=== PATIENT | female | born 1960 | race Caucasian/White ===

== ENCOUNTER 2016-06-02 07:50 | Outpatient (CLI) | payer BC, OTHER ==
[2016-06-02 08:58] LABS: BASOPHILS # (AUTO) 0.1 /CMM (0.0-0.2); BASOPHILS % (AUTO) 0.8 % (0.0-2.0); DIFF TOTAL % 100 %; EOSINOPHILS # (AUTO) 0.3 /CMM (0.0-0.7); EOSINOPHILS % (AUTO) 4.9 % (0.0-6.0); HEMATOCRIT 41 % (33-45); HEMOGLOBIN 14.1 g/dL (11.5-14.8); LYMPHOCYTES # (AUTO) 1.9 /CMM (0.8-4.8); LYMPHOCYTES % (AUTO) 28.6 % (20.0-44.0); MEAN CORPUSCULAR HEMOGLOBIN 30 PG (26.0-33.0); MEAN CORPUSCULAR HGB CONC 34 g/dl (31.0-36.0); MEAN CORPUSCULAR VOLUME 88 fL (82-100); MONOCYTES # (AUTO) 0.5 /CMM (0.1-1.30); MONOCYTES % (AUTO) 7.8 % (2.0-12.0); NEUTROPHILS # (AUTO) 3.9 /CMM (1.8-8.9); NEUTROPHILS % (AUTO) 57.9 % (43.0-81.0); PLATELET COUNT (AUTO) 126 /CMM (150-450); RED BLOOD CELL COUNT(AUTO) 4.72 MIL/uL (4.0-5.2); WHITE BLOOD COUNT (AUTO) 6.7 K/uL (4.3-11.0)
[2016-06-02 09:25] LABS: ALBUMIN 3.5 g/dL (3.4-5.0); BILIRUBIN,TOTAL 0.6 mg/dL (0.2-1.0); CREATININE 0.8 mg/dL (0.6-1.3); POTASSIUM 3.8 mmol/L (3.5-5.1); TOTAL PROTEIN, SERUM 7.1 g/dL (6.4-8.2)
[2016-06-02 09:49] LABS: ERYTHROCYTE SEDIMENTATION RATE 14 MM/HR (0-30)
== END 2016-06-02 23:59 | disposition home or self-care (01) ==
LOC: LAB 07:50
DX: K63.89 Other specified diseases of intestine (principal)
CPT/HCPCS: 36415; 80053-TC; 82306; 82728-TC; 83540-TC; 85025-TC; 85652-TC; 86140-TC

== ENCOUNTER 2016-10-18 07:58 | Outpatient (CLI) | payer BC, OTHER ==
[2016-10-18 08:27] LABS: BASOPHILS % (AUTO) 0.6 % (0.0-2.0); EOSINOPHILS # (AUTO) 0.3 /CMM (0.0-0.7); EOSINOPHILS % (AUTO) 5.4 % (0.0-6.0); HEMATOCRIT 39 % (33-45); HEMOGLOBIN 13.5 g/dL (11.5-14.8); LYMPHOCYTES # (AUTO) 2.1 /CMM (0.8-4.8); LYMPHOCYTES % (AUTO) 35.9 % (20.0-44.0); MEAN CORPUSCULAR HEMOGLOBIN 29 PG (26.0-33.0); MEAN CORPUSCULAR HGB CONC 34 g/dl (31.0-36.0); MEAN CORPUSCULAR VOLUME 85 fL (82-100); MONOCYTES # (AUTO) 0.5 /CMM (0.1-1.30); MONOCYTES % (AUTO) 7.8 % (2.0-12.0); NEUTROPHILS % (AUTO) 50.3 % (43.0-81.0); PLATELET COUNT (AUTO) 162 /CMM (150-450); RDW COEFFICIENT OF VARIATION 13.1 (11.5-15.0); WHITE BLOOD COUNT (AUTO) 5.9 K/uL (4.3-11.0)
[2016-10-18 08:43] LABS: ALBUMIN 3.2 g/dL (3.4-5.0); BILIRUBIN,TOTAL 0.6 mg/dL (0.2-1.0); CALCIUM, SERUM 8.2 mg/dL (8.5-10.1); CREATININE 0.8 mg/dL (0.6-1.3); POTASSIUM 4.2 mmol/L (3.5-5.1); TOTAL PROTEIN, SERUM 6.9 g/dL (6.4-8.2)
== END 2016-10-18 23:59 | disposition home or self-care (01) ==
LOC: LAB 07:58
DX: Z01.818 Encounter for other preprocedural examination (principal)
CPT/HCPCS: 36415; 80053-TC; 85025-TC

== ENCOUNTER 2016-12-21 13:52 | Outpatient (CLI) | payer BC, OTHER ==
[2016-12-21 14:40] LABS: ALBUMIN 3.6 g/dL (3.4-5.0); BILIRUBIN,TOTAL 0.5 mg/dL (0.2-1.0); CALCIUM, SERUM 8.2 mg/dL (8.5-10.1); CREATININE 0.8 mg/dL (0.6-1.3); POTASSIUM 3.7 mmol/L (3.5-5.1); TOTAL PROTEIN, SERUM 7.4 g/dL (6.4-8.2)
== END 2016-12-21 23:59 | disposition home or self-care (01) ==
LOC: LAB 13:52
DX: K52.9 Noninfective gastroenteritis and colitis, unspecified (principal)
CPT/HCPCS: 36415; 80053-TC

== ENCOUNTER 2017-04-27 13:05 | Emergency (ER) | payer BC, OTHER ==
[~2017-04-27] VITALS: Ht 162.6 cm; Wt 70.8 kg
--- NOTE | 2017-04-27 13:10 | NUR ---
PATIENT TO ED DT SUDDEN L HIP PAIN THIS MORNING,/, NON RADITING. NO TRAUMA. PATIENT IS AMBULATORY. VSS
[2017-04-27] MEDS ORDERED: MORPHINE SULFATE INJ 2 MG/ML DISP.SYRIN IM ONE (14:30)
[2017-04-27] MEDS ORDERED: ONDANSETRON 4 MG TAB.RAPDIS SL ONE (14:30)
--- NOTE | 2017-04-27 14:45 | NUR ---
Patient discharged to home in stable condition. Written and verbal after care instructions given. Patient verbalizes understanding of instruction.
[2017-04-27 15:19] VITALS: BP 115/74
== END 2017-04-27 15:19 | disposition home or self-care (01) ==
LOC: ER 13:06
DX: M25.552 Pain in left hip (principal)
CPT/HCPCS: 99281; A4606; Z7610; Z7502

== ENCOUNTER 2020-06-20 14:07 | Outpatient (CLI) | payer BC, OTHER ==
[2020-06-20 15:32] LABS: BASOPHILS # (AUTO) 0.1 /CMM (0.0-0.2); HEMATOCRIT 43 % (33-45); HEMOGLOBIN 14.5 g/dL (11.5-14.8); LYMPHOCYTES # (AUTO) 2.5 /CMM (0.8-4.8); LYMPHOCYTES % (AUTO) 35.7 % (20.0-44.0); MEAN CORPUSCULAR HGB CONC 34 g/dl (31.0-36.0); MEAN CORPUSCULAR VOLUME 88 fL (82-100); MONOCYTES # (AUTO) 0.4 /CMM (0.1-1.30); MONOCYTES % (AUTO) 6.4 % (2.0-12.0); NEUTROPHILS # (AUTO) 3.7 /CMM (1.8-8.9); NEUTROPHILS % (AUTO) 52.9 % (43.0-81.0); PLATELET COUNT (AUTO) 187 /CMM (150-450); RED BLOOD CELL COUNT(AUTO) 4.86 MIL/uL (4.0-5.2); WHITE BLOOD COUNT (AUTO) 6.9 K/uL (4.3-11.0)
[2020-06-20 16:01] LABS: ALBUMIN 4.2 g/dL (3.4-5.0); BILIRUBIN,TOTAL 0.8 mg/dL (0.2-1.0); CALCIUM, SERUM 9.4 mg/dL (8.5-10.1); CREATININE 0.7 mg/dL (0.6-1.3); POTASSIUM 3.7 mmol/L (3.5-5.1); TOTAL PROTEIN, SERUM 7.8 g/dL (6.4-8.2)
[2020-06-21 08:06] LABS: AFP, TUMOR MARKER 2.2 ng/mL (0.0-8.3)
== END 2020-06-20 23:59 | disposition home or self-care (01) ==
LOC: LAB 14:07
DX: K51.90 Ulcerative colitis, unspecified, without complications (principal); K76.0 Fatty (change of) liver, not elsewhere classified; R97.8 Other abnormal tumor markers; R79.1 Abnormal coagulation profile
CPT/HCPCS: 36415; 80053-TC; 82105; 82150-TC; 83516; 83690-TC; 85025-TC; 85610-TC; 85730-TC; 86706; 86707; 86803; 87340; 87350; 87522; 87806

== ENCOUNTER 2020-07-10 09:00 | Outpatient (CLI) | payer BC, OTHER ==
[2020-07-10 10:28] LABS: BILIRUBIN,URINE NEGATIVE (NEGATIVE); LEUKOCYTE ESTERASE ,URINE TRACE (NEGATIVE); NITRITE, URINE NEGATIVE (NEGATIVE); PH,URINE 5.5 (5.0-8.0); PROTEIN,URINE NEGATIVE (NEGATIVE); UGLUCOSE NEGATIVE (NEGATIVE); UROBILINOGEN,URINE 0.2 EU/dL (0.2)
[2020-07-10 10:29] LABS: COLOR,URINE STRAW (YELLOW)
[2020-07-10 10:43] LABS: C-REACTIVE PROTEIN 0.4 mg/dL (0.0-0.9); THYROID STIMULATING HORMONE 1.179 uIU/mL (0.358-3.74)
[2020-07-10 12:32] LABS: BACTERIA,URINE Few /HPF (None Seen); RBC,URINE 0-2 /HPF (0-2); SQUAMOUS EPITHELIAL CELL,UR Moderate /HPF (None Seen); WBC,URINE 0-3 /HPF (0-3)
[2020-07-11 08:06] LABS: THYROID PEROXIDASE (TPO) AB 13 IU/mL (0-34)
== END 2020-07-10 23:59 | disposition home or self-care (01) ==
LOC: CT 09:00
PROVIDERS: ATTEND Legal Medicine
DX: E03.9 Hypothyroidism, unspecified (principal); D64.9 Anemia, unspecified; E55.9 Vitamin D deficiency, unspecified; R10.9 Unspecified abdominal pain; I67.82 Cerebral ischemia; Z00.00 Encounter for general adult medical examination without abnormal findings
CPT/HCPCS: 36415; 70450-TC; 80061-TC; 81001; 82306; 82607-TC; 84439-TC; 84443-TC; 85652-TC; 86140-TC; 86376; 86800

== ENCOUNTER 2020-08-05 08:23 | Outpatient (CLI) | payer BC, OTHER ==
[2020-08-05 09:18] LABS: BASOPHILS # (AUTO) 0.1 /CMM (0.0-0.2); BASOPHILS % (AUTO) 0.9 % (0.0-2.0); EOSINOPHILS % (AUTO) 2.3 % (0.0-6.0); HEMATOCRIT 42 % (33-45); HEMOGLOBIN 13.9 g/dL (11.5-14.8); LYMPHOCYTES % (AUTO) 31.7 % (20.0-44.0); MEAN CORPUSCULAR HGB CONC 34 g/dl (31.0-36.0); MEAN CORPUSCULAR VOLUME 89 fL (82-100); MONOCYTES # (AUTO) 0.4 /CMM (0.1-1.30); MONOCYTES % (AUTO) 6.2 % (2.0-12.0); NEUTROPHILS # (AUTO) 3.7 /CMM (1.8-8.9); NEUTROPHILS % (AUTO) 58.9 % (43.0-81.0); PLATELET COUNT (AUTO) 180 /CMM (150-450); RED BLOOD CELL COUNT(AUTO) 4.69 MIL/uL (4.0-5.2); WHITE BLOOD COUNT (AUTO) 6.2 K/uL (4.3-11.0)
[2020-08-05 09:46] LABS: ALBUMIN 3.7 g/dL (3.4-5.0); BILIRUBIN,TOTAL 0.6 mg/dL (0.2-1.0); CALCIUM, SERUM 8.7 mg/dL (8.5-10.1); CREATININE 0.7 mg/dL (0.6-1.3); POTASSIUM 3.9 mmol/L (3.5-5.1); TOTAL PROTEIN, SERUM 7.2 g/dL (6.4-8.2)
[2020-08-06 08:06] LABS: AFP, TUMOR MARKER 1.8 ng/mL (0.0-8.3)
[2020-08-07 10:07] LABS: HEPATITIS Be AB Negative (Negative)
== END 2020-08-05 23:59 | disposition home or self-care (01) ==
LOC: LAB 08:23
DX: K51.90 Ulcerative colitis, unspecified, without complications (principal); R79.1 Abnormal coagulation profile; K76.0 Fatty (change of) liver, not elsewhere classified; R97.8 Other abnormal tumor markers
CPT/HCPCS: 36415; 80053-TC; 82105; 82150-TC; 83690-TC; 85025-TC; 85730-TC; 86706; 86707; 86803; 87340; 87350; 87522

== ENCOUNTER 2020-12-11 10:27 | Outpatient (CLI) | payer BC, OTHER | END 2020-12-11 23:59 | disposition home or self-care (01) | LOC: US 10:27 | PROVIDERS: ATTEND Legal Medicine | DX: R10.2 Pelvic and perineal pain (principal) | CPT/HCPCS: 76856-TC ==

== ENCOUNTER 2020-12-22 06:24 | Emergency (ER) | payer BC, OTHER ==
[~2020-12-22] VITALS: Ht 162.6 cm; Wt 62.6 kg
[2020-12-22 06:24] VITALS: BP 98/69
== END 2020-12-22 07:20 | disposition home or self-care (01) ==
LOC: ER 06:24
DX: U07.1 COVID-19 (principal); Z87.19 Personal history of other diseases of the digestive system
CPT/HCPCS: 87426; 99283; C9803; U0003

== ENCOUNTER 2021-04-13 09:55 | Outpatient (CLI) | payer BC, OTHER ==
[2021-04-13 11:09] LABS: BASOPHILS % (AUTO) 0.7 % (0.0-2.0); EOSINOPHILS % (AUTO) 2.7 % (0.0-6.0); HEMATOCRIT 43 % (33-45); HEMOGLOBIN 14.2 g/dL (11.5-14.8); LYMPHOCYTES # (AUTO) 2.4 K/uL (0.8-4.8); LYMPHOCYTES % (AUTO) 39.7 % (20.0-44.0); MEAN CORPUSCULAR HGB CONC 33 g/dl (31.0-36.0); MEAN CORPUSCULAR VOLUME 91 fL (82-100); MONOCYTES # (AUTO) 0.4 K/uL (0.1-1.30); MONOCYTES % (AUTO) 7.2 % (2.0-12.0); NEUTROPHILS % (AUTO) 49.7 % (43.0-81.0); PLATELET COUNT (AUTO) 173 K/uL (150-450); RED BLOOD CELL COUNT(AUTO) 4.68 MIL/uL (4.0-5.2); WHITE BLOOD COUNT (AUTO) 6.1 K/uL (4.3-11.0)
[2021-04-13 11:17] LABS: ALBUMIN 3.8 g/dL (3.4-5.0); BILIRUBIN,TOTAL 0.9 mg/dL (0.2-1.0); CALCIUM, SERUM 8.9 mg/dL (8.5-10.1); CREATININE 0.8 mg/dL (0.6-1.3); POTASSIUM 4.1 mmol/L (3.5-5.1); TOTAL PROTEIN, SERUM 7.2 g/dL (6.4-8.2)
[2021-04-13 11:26] LABS: THYROID STIMULATING HORMONE 1.522 uIU/mL (0.358-3.74); URIC ACID 5.1 mg/dL (2.6-7.2)
[2021-04-13 12:59] LABS: BILIRUBIN,URINE NEGATIVE (NEGATIVE); COLOR,URINE YELLOW (YELLOW); LEUKOCYTE ESTERASE ,URINE LARGE (NEGATIVE); NITRITE, URINE NEGATIVE (NEGATIVE); PH,URINE 6.5 (5.0-8.0); PROTEIN,URINE NEGATIVE (NEGATIVE); UGLUCOSE NEGATIVE (NEGATIVE); UROBILINOGEN,URINE 0.2 EU/dL (0.2)
[2021-04-13 17:23] LABS: C-REACTIVE PROTEIN 0.5 mg/dL (0.0-0.9)
== END 2021-04-13 23:59 | disposition home or self-care (01) ==
LOC: LAB 09:55
PROVIDERS: ATTEND Legal Medicine
DX: E11.9 Type 2 diabetes mellitus without complications (principal); E55.9 Vitamin D deficiency, unspecified; E78.00 Pure hypercholesterolemia, unspecified; E03.9 Hypothyroidism, unspecified; D64.9 Anemia, unspecified; R53.1 Weakness; Z00.00 Encounter for general adult medical examination without abnormal findings
CPT/HCPCS: 36415; 80053-TC; 80061-TC; 81001; 82306; 82607-TC; 82728-TC; 83540-TC; 84439-TC; 84443-TC; 84550-TC; 85025-TC; 85652-TC; 86140-TC; 87086-TC

== ENCOUNTER 2021-04-24 07:20 | Outpatient (CLI) | payer BC, OTHER | END 2021-04-24 23:59 | disposition home or self-care (01) | LOC: CARD 07:20 | PROVIDERS: ATTEND Legal Medicine | DX: M79.669 Pain in unspecified lower leg (principal) | CPT/HCPCS: 93970-TC ==

== ENCOUNTER 2021-07-27 09:00 | Outpatient (CLI) | payer BC, OTHER ==
[2021-07-27 09:47] LABS: BASOPHILS % (AUTO) 0.5 % (0.0-2.0); EOSINOPHILS % (AUTO) 3.9 % (0.0-6.0); HEMATOCRIT 40 % (33-45); HEMOGLOBIN 13.4 g/dL (11.5-14.8); LYMPHOCYTES # (AUTO) 2.3 K/uL (0.8-4.8); LYMPHOCYTES % (AUTO) 37.9 % (20.0-44.0); MEAN CORPUSCULAR HGB CONC 34 g/dl (31.0-36.0); MEAN CORPUSCULAR VOLUME 90 fL (82-100); MONOCYTES # (AUTO) 0.4 K/uL (0.1-1.30); MONOCYTES % (AUTO) 6.9 % (2.0-12.0); NEUTROPHILS % (AUTO) 50.8 % (43.0-81.0); PLATELET COUNT (AUTO) 163 K/uL (150-450); RED BLOOD CELL COUNT(AUTO) 4.44 MIL/uL (4.0-5.2)
[2021-07-27 10:03] LABS: BILIRUBIN,URINE NEGATIVE (NEGATIVE); COLOR,URINE YELLOW (YELLOW); LEUKOCYTE ESTERASE ,URINE MODERATE (NEGATIVE); NITRITE, URINE NEGATIVE (NEGATIVE); PH,URINE 5.5 (5.0-8.0); PROTEIN,URINE NEGATIVE (NEGATIVE); UGLUCOSE NEGATIVE (NEGATIVE); UROBILINOGEN,URINE 0.2 EU/dL (0.2)
[2021-07-27 10:17] LABS: BACTERIA,URINE Moderate /HPF (None Seen); RBC,URINE 0-2 /HPF (0-2); SQUAMOUS EPITHELIAL CELL,UR Moderate /HPF (None Seen)
[2021-07-27 10:27] LABS: C-REACTIVE PROTEIN 0.2 mg/dL (0.0-0.9); FREE T4 (FREE THYROXINE) 1.09 ng/dL (0.76-1.46); THYROID STIMULATING HORMONE 1.089 uIU/mL (0.358-3.74); URIC ACID 4.3 mg/dL (2.6-7.2)
[2021-07-27 10:50] LABS: ALBUMIN 3.9 g/dL (3.4-5.0); BILIRUBIN,TOTAL 0.8 mg/dL (0.2-1.0); CALCIUM, SERUM 8.6 mg/dL (8.5-10.1); CREATININE 0.7 mg/dL (0.6-1.3); POTASSIUM 3.6 mmol/L (3.5-5.1); TOTAL PROTEIN, SERUM 7.2 g/dL (6.4-8.2)
== END 2021-07-27 23:59 | disposition home or self-care (01) ==
LOC: LAB 09:00
PROVIDERS: ATTEND Legal Medicine
DX: E11.9 Type 2 diabetes mellitus without complications (principal); E55.9 Vitamin D deficiency, unspecified; E78.5 Hyperlipidemia, unspecified; E03.9 Hypothyroidism, unspecified; D64.9 Anemia, unspecified; Z00.00 Encounter for general adult medical examination without abnormal findings
CPT/HCPCS: 36415; 80053-TC; 80061-TC; 81001; 82306; 82607-TC; 82728-TC; 83540-TC; 84439-TC; 84443-TC; 84550-TC; 85025-TC; 85652-TC; 86140-TC; 87086-TC

== ENCOUNTER 2021-12-21 08:00 | Outpatient (CLI) | payer BC, OTHER | END 2021-12-21 23:59 | disposition home or self-care (01) | LOC: LAB 08:00 | PROVIDERS: ATTEND Internal Medicine Gastroenterology | DX: Z01.812 Encounter for preprocedural laboratory examination (principal); Z20.822 Contact with and (suspected) exposure to COVID-19 | CPT/HCPCS: U0003; C9803 ==

== ENCOUNTER 2021-12-28 07:50 | Day surgery (SDC) | payer BC, OTHER ==
--- NOTE | 2021-12-28 08:50 | NUR ---
MS/DS RN NOTES PT ARRIVED TO UNIT AT 0800 AMBULATORY ACCOMPANIED BY ADMITTING STAFF FOR COLONOSCOPY BY DR COWAN. PT IS A/O X4. ABLE TO VERBALIZED NEEDS. ORIENTED TO ROOM AND STAFF. ON ROOM AIR, TOLERATING WELL, BREATHING EVEN AND UNLABORED. PT SIGNED ALL CONSENTS FOR SURGERY AND FILED ON HIS CHART. PT VERBALIZED THAT SHE WAS NPO SINCE 1800 YESTERDAY. INSERTED IV ACCESS ON LFA G#22 AND SECURED WITH TAPE. PLACED EKG, CXR, PT/PTT, CBC AND CMP PER MD ORDER. SAFETY MEASURES IMPLEMENTED: BED PLACED IN LOWEST LOCKED POSITION WITH SIDE-RAILS UP X2. CALL LIGHT WITHIN EASY REACH OF PT. WILL CONTINUE TO MONITOR.
[2021-12-28 09:45] LABS: BASOPHILS % (AUTO) 0.8 % (0.0-2.0); EOSINOPHILS % (AUTO) 3.1 % (0.0-6.0); HEMATOCRIT 41 % (33-45); HEMOGLOBIN 13.9 g/dL (11.5-14.8); LYMPHOCYTES # (AUTO) 1.5 K/uL (0.8-4.8); MEAN CORPUSCULAR HGB CONC 34 g/dl (31.0-36.0); MEAN CORPUSCULAR VOLUME 90 fL (82-100); MONOCYTES # (AUTO) 0.3 K/uL (0.1-1.30); MONOCYTES % (AUTO) 6.8 % (2.0-12.0); NEUTROPHILS # (AUTO) 2.7 K/uL (1.8-8.9); NEUTROPHILS % (AUTO) 57.3 % (43.0-81.0); PLATELET COUNT (AUTO) 148 K/uL (150-450); RED BLOOD CELL COUNT(AUTO) 4.58 MIL/uL (4.0-5.2); WHITE BLOOD COUNT (AUTO) 4.7 K/uL (4.3-11.0)
[2021-12-28 10:05] LABS: CREATININE 0.8 mg/dL (0.6-1.3); POTASSIUM 4.5 mmol/L (3.5-5.1)
[2021-12-28 10:11] LABS: ALBUMIN 3.9 g/dL (3.4-5.0); BILIRUBIN,TOTAL 1.3 mg/dL (0.2-1.0); TOTAL PROTEIN, SERUM 7.4 g/dL (6.4-8.2)
--- NOTE | 2021-12-28 10:42 | NUR ---
RN NOTES PT RETURNED TO UNIT VIA HER BED AT 1045 S/P COLONOSCOPY BY DR COWAN ACCOMPANIED BY BETI PETE. PT IS AWAKE A/O X4 AND VERBALLY RESPONSIVE, DENIES PAIN OR ANY DISCOMFORTS AT THIS TIME. PT ON ROOM AIR, TOLERATING WELL, BREATHING EVEN WITH NO ACUTE RESPIRATORY DISTRESS NOTED. V/S TAKEN, STABLE AT THIS TIME AND RECORDED. SAFETY MEASURES MAINTAINED: BED IN LOWEST LOCKED POSITION, SR UP X2, TRAY TABLE AND CALL LIGHT W/I EASY REACH OF PT.
[2021-12-28 10:45] VITALS: BP 112/69
[2021-12-28 11:00] VITALS: BP 101/62
[2021-12-28 11:15] VITALS: BP 105/64
[2021-12-28 11:30] VITALS: BP 104/56
[2021-12-28 11:45] VITALS: BP 114/58
[2021-12-28 12:15] VITALS: BP 108/60
--- NOTE | 2021-12-28 13:11 | NUR ---
DAY SURGERY PROPELLER TESTER NOTE PATIENT DISCHARGE HOME IN STABLE CONDITION, AOX4, ABLE TO MAKE NEEDS KNOWN, VS TAKEN, WNL AND RECORDED. ALL BELONGINGS ACCOUNTED FOR. IV ACCESS L FOREARM G#22 REMOVED WITH NO ACTIVE BLEEDING NOTED. DRY PRESSURE DRESSING APPLIED AT SITE. NAME ARM BAND REMOVED. HEALTH TEACHINGS AND DISCHARGE INSTRUCTIONS GIVEN TO PATIENT, VERBALIZED UNDERSTANDING. PATIENT LEFT UNIT, AMBULATORY AT 1310 ACCOMPANIED BY HANG. CHARGE NURSE AWARE OF DISCHARGE.
== END 2021-12-28 18:00 | disposition home or self-care (01) ==
LOC: DS 07:50 → MED 07:52 → UNDOADMIN 07:52 → UNDODISIN 13:15 → DS 18:00
PROVIDERS: ATTEND Internal Medicine Gastroenterology
DX: K51.90 Ulcerative colitis, unspecified, without complications (principal); K63.89 Other specified diseases of intestine; K64.8 Other hemorrhoids
CPT/HCPCS: 45380; 71045; 85025; 85610; 85730; 36415; 80053; 93005; J2704; J7030; J3490; G0378

== ENCOUNTER 2022-03-26 08:12 | Outpatient (CLI) | payer BC, OTHER ==
[2022-03-26 09:26] LABS: BASOPHILS % (AUTO) 0.8 % (0.0-2.0); HEMATOCRIT 40 % (33-45); HEMOGLOBIN 13.7 g/dL (11.5-14.8); LYMPHOCYTES # (AUTO) 1.7 K/uL (0.8-4.8); LYMPHOCYTES % (AUTO) 31.3 % (20.0-44.0); MEAN CORPUSCULAR HGB CONC 34 g/dl (31.0-36.0); MEAN CORPUSCULAR VOLUME 88 fL (82-100); MONOCYTES # (AUTO) 0.5 K/uL (0.1-1.30); MONOCYTES % (AUTO) 9.7 % (2.0-12.0); NEUTROPHILS # (AUTO) 2.9 K/uL (1.8-8.9); NEUTROPHILS % (AUTO) 52.2 % (43.0-81.0); PLATELET COUNT (AUTO) 161 K/uL (150-450); RED BLOOD CELL COUNT(AUTO) 4.52 MIL/uL (4.0-5.2); WHITE BLOOD COUNT (AUTO) 5.5 K/uL (4.3-11.0)
[2022-03-26 09:52] LABS: BILIRUBIN,URINE NEGATIVE (NEGATIVE); LEUKOCYTE ESTERASE ,URINE 3+ (NEGATIVE); NITRITE, URINE NEGATIVE (NEGATIVE); PROTEIN,URINE NEGATIVE (NEGATIVE); UGLUCOSE NEGATIVE (NEGATIVE); UROBILINOGEN,URINE 0.2 EU/dL (0.2)
[2022-03-26 09:53] LABS: COLOR,URINE STRAW (YELLOW)
[2022-03-26 10:51] LABS: FREE T4 (FREE THYROXINE) 1.12 ng/dL (0.76-1.46); THYROID STIMULATING HORMONE 1.205 uIU/mL (0.358-3.74); URIC ACID 5.5 mg/dL (2.6-7.2)
[2022-03-26 10:52] LABS: C-REACTIVE PROTEIN 1.4 mg/dL (0.0-0.9)
[2022-03-26 10:56] LABS: ALBUMIN 3.7 g/dL (3.4-5.0); BILIRUBIN,TOTAL 0.7 mg/dL (0.2-1.0); CALCIUM, SERUM 8.9 mg/dL (8.5-10.1); CREATININE 0.7 mg/dL (0.6-1.3); POTASSIUM 3.4 mmol/L (3.5-5.1); TOTAL PROTEIN, SERUM 7.3 g/dL (6.4-8.2)
[2022-03-26 11:37] LABS: BACTERIA,URINE Moderate /HPF (None Seen); SQUAMOUS EPITHELIAL CELL,UR Moderate /HPF (None Seen)
== END 2022-03-26 23:59 | disposition home or self-care (01) ==
LOC: LAB 08:12
PROVIDERS: ATTEND Legal Medicine
DX: Z00.00 Encounter for general adult medical examination without abnormal findings (principal); K21.9 Gastro-esophageal reflux disease without esophagitis; E11.9 Type 2 diabetes mellitus without complications; R53.1 Weakness; E55.9 Vitamin D deficiency, unspecified; D64.9 Anemia, unspecified; I10 Essential (primary) hypertension
CPT/HCPCS: 36415; 80053-TC; 80061-TC; 81001; 82306; 82607-TC; 82728-TC; 83540-TC; 84439-TC; 84443-TC; 84550-TC; 85025-TC; 85652-TC; 86140-TC; 87086-TC

== ENCOUNTER 2022-04-26 14:15 | Emergency (ER) | payer BC, OTHER ==
[~2022-04-26] VITALS: Ht 162.6 cm; Wt 59.0 kg
[2022-04-26] MEDS ORDERED: IV NS 0.9% 1,000 ML BAG IV ONE (15:00)
[2022-04-26] MEDS ORDERED: ONDANSETRON HCL/PF 4 MG/2 ML VIAL IVP ONE (15:00)
--- NOTE | 2022-04-26 15:46 | NUR ---
PATIENT CHEMA LONG MADE AWARE.
[2022-04-26 15:47] VITALS: BP 126/68
== END 2022-04-26 15:46 | disposition left against medical advice (07) ==
LOC: ER 14:26
DX: Z53.21 Procedure and treatment not carried out due to patient leaving prior to being seen by health care provider (principal)

== ENCOUNTER 2023-02-07 07:48 | Outpatient (CLI) | payer BC, OTHER ==
[2023-02-07 09:32] LABS: APPEARANCE,URINE CLEAR (CLEAR); BASOPHILS % (AUTO) 0.7 % (0.0-2.0); BILIRUBIN,URINE NEGATIVE (NEGATIVE); BLOOD, URINE NEGATIVE Ery/uL (NEGATIVE); COLOR,URINE YELLOW (YELLOW); EOSINOPHILS # (AUTO) 0.3 K/uL (0.0-0.7); EOSINOPHILS % (AUTO) 5.4 % (0.0-6.0); HEMATOCRIT 42 % (33-45); HEMOGLOBIN 13.6 g/dL (11.5-14.8); KETONES,URINE NEGATIVE (NEGATIVE); LEUKOCYTE ESTERASE ,URINE 3+ (NEGATIVE); LYMPHOCYTES # (AUTO) 1.7 K/uL (0.8-4.8); LYMPHOCYTES % (AUTO) 30.5 % (20.0-44.0); MEAN CORPUSCULAR HEMOGLOBIN 30 PG (26.0-33.0); MEAN CORPUSCULAR HGB CONC 33 g/dl (31.0-36.0); MEAN CORPUSCULAR VOLUME 92 fL (82-100); MONOCYTES # (AUTO) 0.4 K/uL (0.1-1.30); MONOCYTES % (AUTO) 7.3 % (2.0-12.0); NEUTROPHILS # (AUTO) 3.1 K/uL (1.8-8.9); NEUTROPHILS % (AUTO) 56.1 % (43.0-81.0); NITRITE, URINE NEGATIVE (NEGATIVE); PLATELET COUNT (AUTO) 165 K/uL (150-450); PROTEIN,URINE NEGATIVE (NEGATIVE); RED BLOOD CELL COUNT(AUTO) 4.54 MIL/uL (4.0-5.2); UGLUCOSE NEGATIVE (NEGATIVE); UROBILINOGEN,URINE 0.2 EU/dL (0.2); WHITE BLOOD COUNT (AUTO) 5.6 K/uL (4.3-11.0)
[2023-02-07 09:39] LABS: ERYTHROCYTE SEDIMENTATION RATE 7 MM/HR (0-30)
[2023-02-07 10:27] LABS: ADD URINE CULTURE YES; BACTERIA,URINE Few /HPF (None Seen); RBC,URINE 0-2 /HPF (0-2); SQUAMOUS EPITHELIAL CELL,UR Few /HPF (None Seen)
[2023-02-07 10:46] LABS: C-REACTIVE PROTEIN 0.9 mg/dL (0.0-0.9); FREE T4 (FREE THYROXINE) 1.02 ng/dL (0.76-1.46); THYROID STIMULATING HORMONE 1.109 uIU/mL (0.358-3.74); URIC ACID 4.8 mg/dL (2.6-7.2)
[2023-02-07 10:54] LABS: ALBUMIN 3.8 g/dL (3.4-5.0); BILIRUBIN,TOTAL 1.2 mg/dL (0.2-1.0); CREATININE 0.8 mg/dL (0.6-1.3); POTASSIUM 3.8 mmol/L (3.5-5.1); TOTAL PROTEIN, SERUM 7.6 g/dL (6.4-8.2)
[2023-02-08 02:07] LABS: VIT D, 25-HYDROXY 53.8 ng/mL (30.0-100.0)
[2023-02-08 06:07] LABS: FOLIC ACID 16.1 ng/mL (>3.0)
== END 2023-02-07 23:59 | disposition home or self-care (01) ==
LOC: LAB 07:48
PROVIDERS: ATTEND Legal Medicine
DX: Z00.00 Encounter for general adult medical examination without abnormal findings (principal); E78.5 Hyperlipidemia, unspecified; D64.4 Congenital dyserythropoietic anemia; E11.9 Type 2 diabetes mellitus without complications; R53.1 Weakness
CPT/HCPCS: 36415; 80053-TC; 80061-TC; 81001; 82306; 82607-TC; 82728-TC; 83540-TC; 84439-TC; 84443-TC; 84550-TC; 85025-TC; 85652-TC; 86140-TC; 87086-TC

== ENCOUNTER → 2023-10-12 | Outpatient (CLI) | payer BC, OTHER | END | disposition home or self-care (01) | LOC: MRI 10:14 | PROVIDERS: ATTEND Legal Medicine | DX: M47.27 Other spondylosis with radiculopathy, lumbosacral region (principal); M50.121 Cervical disc disorder at C4-C5 level with radiculopathy; M47.814 Spondylosis without myelopathy or radiculopathy, thoracic region | CPT/HCPCS: 72141-TC; 72148-TC ==

== ENCOUNTER 2024-06-26 06:16 | Day surgery (SDC) | payer BC, OTHER ==
[2024-06-26] MEDS ORDERED: BUPIVACAINE 0.5 % PF 150 MG/30 ML VIAL ONE (06:29)
[2024-06-26] MEDS ORDERED: LIDOCAINE 1% INJ 50 ML MDV IJ ONE (06:29)
[2024-06-26] MEDS ORDERED: LIDOCAINE 1%-EPI 1:100,000 20 ML VIAL ONE (06:29)
[2024-06-26] MEDS ORDERED: LIDOCAINE 2%-EPI 1:100,000 30 ML VIAL ONE (06:49)
[2024-06-26] MEDS ORDERED: FENTANYL PF 250MCG/5ML AMPUL ONE (07:08)
[2024-06-26] MEDS ORDERED: ROCURONIUM BROMIDE 50 MG/5 ML ONE (07:08)
== END 2024-06-26 09:18 | disposition home or self-care (01) ==
LOC: DS 06:16
PROVIDERS: ATTEND Student in an Organized Health Care Education/Training Program
DX: T81.89XA Other complications of procedures, not elsewhere classified, initial encounter (principal); J34.1 Cyst and mucocele of nose and nasal sinus; L72.8 Other follicular cysts of the skin and subcutaneous tissue; L08.89 Other specified local infections of the skin and subcutaneous tissue; M81.0 Age-related osteoporosis without current pathological fracture; Z98.890 Other specified postprocedural states; Y83.8 Other surgical procedures as the cause of abnormal reaction of the patient, or of later complication, without mention of misadventure at the time of the procedure
CPT/HCPCS: 11440; 88305; J0690; J2704; J3010; J3490; J7030

== ENCOUNTER 2024-11-19 10:00 | Day surgery (SDC) | payer BC ==
[2024-11-19 11:24] LABS: PLATELET COUNT (AUTO) 110 K/uL (150-450); RED BLOOD CELL COUNT(AUTO) 4.64 MIL/uL (4.0-5.2); RED CELL DISTRIBUTION WIDTH 13.4 % (11.5-15.0); WHITE BLOOD COUNT (AUTO) 5.0 K/uL (4.3-11.0)
[2024-11-19 11:37] LABS: CALCIUM, SERUM 9.0 mg/dL (8.5-10.1); CREATININE 0.7 mg/dL (0.6-1.3); SODIUM SERUM 143.0 mmol/L (136-145); UREA NITROGEN, BLOOD 13.0 mg/dL (7-18)
[2024-11-19 11:44] LABS: ASPARTATE AMINOTRANSFERASE 36.0 U/L (15-37); TOTAL PROTEIN, SERUM 7.3 g/dL (6.4-8.2)
== END 2024-11-19 23:59 | disposition home or self-care (01) ==
LOC: DS 10:00 → UNDOADMIN 10:29 → MED 10:29 → UNDODISIN 13:50 → DS 23:59 → MED 11-22 06:09
PROVIDERS: ATTEND Internal Medicine Gastroenterology
DX: K51.90 Ulcerative colitis, unspecified, without complications (principal); K63.89 Other specified diseases of intestine; Z79.899 Other long term (current) drug therapy; Z98.890 Other specified postprocedural states
CPT/HCPCS: 45380; 71045; 85025; 36415; 80053; 88305; 93005; J2704; J7030; J3490; G0378

== ENCOUNTER 2025-03-29 10:28 | Outpatient (CLI) | payer BC | END 2025-03-29 23:59 | disposition home or self-care (01) | LOC: RAD 10:28 | PROVIDERS: ATTEND Legal Medicine | DX: M79.605 Pain in left leg (principal) | CPT/HCPCS: 73552 ==

== ENCOUNTER 2025-04-17 09:51 | Outpatient (CLI) | payer BC | END 2025-04-17 23:59 | disposition home or self-care (01) | LOC: US 09:51 | PROVIDERS: ATTEND Internal Medicine Hematology & Oncology | DX: R16.1 Splenomegaly, not elsewhere classified (principal); D61.818 Other pancytopenia; E80.6 Other disorders of bilirubin metabolism; K51.90 Ulcerative colitis, unspecified, without complications; R74.01 Elevation of levels of liver transaminase levels; K76.89 Other specified diseases of liver | CPT/HCPCS: 76700-TC ==